=== PATIENT | female | born 1990 | race Caucasian/White ===

== ENCOUNTER 2017-11-08 15:49 | Emergency (ER) | payer SELFPAY ==
[~2017-11-08] VITALS: Ht 172.7 cm; Wt 95.3 kg
[2017-11-08] MEDS ORDERED: ACETAMINOPHEN 325 MG TAB PO STA (16:46)
[2017-11-08] MEDS ORDERED: SODIUM CHLORIDE 0.9% 250ML 250 ML IV ONE (17:00)
[2017-11-08 17:27] LABS: BASOPHILS % 0.3 % (0.0-1.0); EOSINOPHILS # (AUTO) 0.1 (0.0-0.4); EOSINOPHILS % 1.1 % (0.0-6.0); LYMPHOCYTES # (AUTO) 1.1 (1.0-3.2); LYMPHOCYTES % 10.3 % (18.0-39.1); MEAN CORPUSCULAR HEMOGLOBIN 27.1 pg (28-32); MEAN CORPUSCULAR HGB CONC 30.9 g/dL (31-35); MEAN CORPUSCULAR VOLUME 87.6 fL (81-99); MONOCYTES # (AUTO) 0.5 (0.2-0.8); MONOCYTES % 4.9 % (4.4-11.3); NEUTROPHILS # (AUTO) 8.9 (2.1-6.9); NEUTROPHILS % 82.7 % (38.7-80.0); PLATELET COUNT 256 x10e3/uL (140-360); RED BLOOD COUNT 2.18 x10e6/uL (3.6-5.1); RED CELL DISTRIBUTION WIDTH 15.2 % (11.7-14.4)
[2017-11-08 17:28] LABS: HEMOGLOBIN 5.9 g/dL (12.0-16.0)
[2017-11-08 17:29] LABS: HEMATOCRIT 19.1 % (34.2-44.1)
[2017-11-08 17:42] LABS: ALANINE AMINOTRANSFERASE 13 IU/L (0-55); ALBUMIN 3.4 g/dL (3.5-5.0); ALKALINE PHOSPHATASE 39 IU/L (40-150); ANION GAP 11.7 mmol/L (8-16); BLOOD UREA NITROGEN 8 mg/dL (7-26); BUN/CREATININE RATIO 12 (6-25); CALCIUM 8.8 mg/dL (8.4-10.2); CARBON DIOXIDE 23 mmol/L (22-29); CHLORIDE 105 mmol/L (98-107); CREATININE, SERUM 0.67 mg/dL (0.57-1.11); EST GLOMERULAR FILTRATION RATE > 60 ML/MIN (60-); GLUCOSE 94 mg/dL (74-118); POTASSIUM 3.7 mmol/L (3.5-5.1); SODIUM 136 mmol/L (136-145)
[2017-11-08 17:48] LABS: HCG,QUANTITATIVE < 1.20 mIU/mL (0-10)
[2017-11-08] MEDS ORDERED: ONDANSETRON HCL 4 MG ORAL DISINTEGRATING TAB ONE (20:58)
[2017-11-08] MEDS ORDERED: ONDANSETRON HCL 4 MG ORAL DISINTEGRATING TAB PO ONE (21:00)
[2017-11-08 21:14] LABS: CLARITY,URINE SL CLOUDY (CLEAR); COLOR,URINE OTHER (YELLOW)
[2017-11-08 21:15] LABS: LEUKOCYTE ESTERASE ,URINE NEGATIVE (NEGATIVE); NITRITE,URINE NEGATIVE (NEGATIVE); PROTEIN,URINE DIPSTICK 2+ (NEGATIVE)
[2017-11-08 21:16] LABS: BILIRUBIN,URINE NEGATIVE (NEGATIVE); KETONES,URINE NEGATIVE (NEGATIVE); URINE UROBILINOGEN 0.2 mg/dL (0.2 - 1)
[2017-11-08 21:46] LABS: BACTERIA,URINE FEW /HPF; EPITHELIAL CELLS,URINE FEW /LPF; RBC,URINE >50 /HPF (0-5); WBC,URINE (MAN) 0-5 /HPF (0-5)
== END 2017-11-08 23:15 | disposition home or self-care (01) ==
LOC: ER 15:49
DX: N93.9 Abnormal uterine and vaginal bleeding, unspecified (principal); D50.0 Iron deficiency anemia secondary to blood loss (chronic)
CPT/HCPCS: 36415; 80053; 81001; 84702; 85025; 86850; 86900; 86920; 99283; J7050; P9016; 36430

== ENCOUNTER 2017-11-10 18:32 | Emergency (ER) | payer SELFPAY ==
[~2017-11-10] VITALS: Ht 162.6 cm; Wt 95.3 kg
--- OUTSIDE RECORDS SUMMARY | 2017-11-10 18:34 | XMS REPORT ---
Author Author Admin, [place] Organization [facility] Address Unknown Phone Unavailable Allergies, Adverse Reactions, Alerts Allergy Name Reaction Description Start Date Severity Status Provider Allergies Unknown Conditions or Problems Problem Name Problem Code Onset Date Status Entry Date Provider Comment Standard Description Annotate Problems Unknown Medication List Medication Instructions Start Date Stop Date Generic Name NDC Status Provider Patient Instruction Drug Treatment Unknown - unknown
--- OUTSIDE RECORDS SUMMARY | 2017-11-10 18:34 | XMS REPORT ---
Author Author [facility] Address Unknown Phone Unavailable Care Team Providers Care Credentialer Name Role Phone Unavailable Unavailable Problems This patient has no known problems. Allergies, Adverse Reactions, Alerts This patient has no known allergies or adverse reactions. Medications This patient has no known medications. Encounters Start Date/Time End Date/Time Encounter Type Admission Type Attending Clinicians [facility] Emergency Department Facility Care Department Encounter ID 2018-01-22 00:00:00 2018-01-22 00:00:00 Outpatient [facility] [id number] 2017-11-03 20:36:14 2017-11-03 20:36:14 Emergency [facility] [id number] 2017-11-03 14:28:19 2017-11-03 14:28:19 Outpatient [facility] [id number] 2017-11-03 14:28:17 2017-11-03 14:28:17 Outpatient [facility] [id number]
--- OUTSIDE RECORDS SUMMARY | 2017-11-10 18:34 | XMS REPORT | Continuity of Care Document ---
Author Author [facility] Organization [facility] Address [address] [place] [address] Phone Unavailable Care Team Providers Care Radiology Practitioner Assistant Name Role Phone NO, PCP PCP Unavailable Advance Directives Directive Response Recorded Date/Time Does the patient have an advance directive? No 11/08/17 4:40pm If yes, is advance directive on file with [facility]? No 11/08/17 4:40pm If not on file with [facility] will patient provide a copy? No 11/08/17 4:40pm Do you have a Directive to Physician? No 11/08/17 4:40pm Do you have a Medical Power of Forms Designer? No 11/08/17 4:40pm Do you have an out of hospital Do Not Resuscitate Order? No 11/08/17 4:40pm Do you have any special needs we should be aware of? No 11/08/17 4:40pm Do you have a support person here with you today? Yes 11/08/17 4:40pm Did patient receive Notice of Privacy Practices? Yes 11/08/17 4:40pm Did patient receive patient rights and responsibilities? Yes 11/08/17 4:40pm Problems No problem information available. Medications No medication information available. Social History Smoking Status Start Date Stop Date Former smoker Hospital Discharge Instructions No hospital discharge instruction information available. Plan of Care Discharge Date 11/08/17 11:15pm Disposition HOME, SELF-CARE Condition at Discharge Stable Instructions/Education Provided Dysmenorrhea Abnormal Uterine Bleeding Forms Provided Work/School Excuse Prescriptions See Medication Section Referrals OB Community Providers Address: You were given a list of OB Community Providers to call and arrange follow up. Additional Instructions/Education Call for follow up appointment to see your medical provider or the referral listed to help you manage your vaginal bleeding. Take over the counter Motrin or Tylenol medication as needed for comfort. Take medication as prescribed. Strict pelvic rest (no sex). Return to the emergency department for any fever, shortness of breath, chest pain, abdominal pain, trouble handling oral secretions, for bleeding of 2 full pads per hour for 2 hours, sharp pelvic pain, dizziness, or any concerns. Call [phone] call center, a free service that provides physician referrals and access to physicians and services. Functional Status No functional status information available. Allergies, Adverse Reactions, Alerts Allergen Type Severity Reaction Status Last Updated Naproxen Allergy Unknown Active 11/08/17 Immunizations No immunization information available. Vital Signs Acute Vital Signs Vital Response Date/Time Height 5 ft 8 in 11/08/2017 3:51pm Weight 210 lb 11/08/2017 3:51pm Body Mass Index 31.9 kg/m^2 11/08/2017 3:51pm Results Laboratory Results Test Name Result Units Flags Reference Collection Date/Time Result Date/ Time Comments White Blood Count 10.73 x10e3/uL 4.8-10.8 11/08/2017 5:04pm 11/08/2017 5:29pm Red Blood Count 2.18 x10e6/uL L 3.6-5.1 11/08/2017 5:04pm 11/08/2017 5: 29pm Hemoglobin 5.9 g/dL *L 12.0-16.0 11/08/2017 5:04pm 11/08/2017 5:29pm Results called to GERI ANTONIO at 1728 on 11/08/17 by KIRSTY MAURICIO. RB OK. Hematocrit 19.1 % *L 34.2-44.1 11/08/2017 5:04pm 11/08/2017 5:29pm Results called to GERI ANTONIO at 1729 on 11/08/17 by KIRSTY MAURICIO. RB OK. Mean Corpuscular Volume 87.6 fL 81-99 11/08/2017 5:04pm 11/08/2017 5: 29pm Mean Corpuscular Hemoglobin 27.1 pg L 28-32 11/08/2017 5:04pm 2017 5:29pm Mean Corpuscular Hemoglobin Concent 30.9 g/dL L 31-35 11/08/2017 5:04pm 11/08/2017 5:29pm Red Cell Distribution Width 15.2 % H 11.7-14.4 11/08/2017 5:04pm 2017 5:29pm Platelet Count 256 x10e3/uL 140-360 11/08/2017 5:04pm 11/08/2017 5: 29pm Neutrophils (%) (Auto) 82.7 % H 38.7-80.0 11/08/2017 5:04pm 11/08/2017 5 :29pm Lymphocytes (%) (Auto) 10.3 % L 18.0-39.1 11/08/2017 5:04pm 11/08/2017 5 :29pm Monocytes (%) (Auto) 4.9 % 4.4-11.3 11/08/2017 5:04pm 11/08/2017 5: 29pm Eosinophils (%) (Auto) 1.1 % 0.0-6.0 11/08/2017 5:04pm 11/08/2017 5: 29pm Basophils (%) (Auto) 0.3 % 0.0-1.0 11/08/2017 5:04pm 11/08/2017 5:29pm IM GRANULOCYTES % 0.7 % 0.0-1.0 11/08/2017 5:04pm 11/08/2017 5:29pm Neutrophils # (Auto) 8.9 H 2.1-6.9 11/08/2017 5:04pm 11/08/2017 5: 29pm Lymphocytes # (Auto) 1.1 1.0-3.2 11/08/2017 5:04pm 11/08/2017 5:29pm Monocytes # (Auto) 0.5 0.2-0.8 11/08/2017 5:04pm 11/08/2017 5:29pm Eosinophils # (Auto) 0.1 0.0-0.4 11/08/2017 5:04pm 11/08/2017 5:29pm Basophils # (Auto) 0.0 0.0-0.1 11/08/2017 5:04pm 11/08/2017 5:29pm Absolute Immature Granulocyte (auto 0.08 x10e3/uL 0-0.1 11/08/2017 5: 04pm 11/08/2017 5:29pm Urine Color OTHER YELLOW 11/08/2017 6:02pm 11/08/2017 9:16pm Urine Clarity SL CLOUDY CLEAR 11/08/2017 6:02pm 11/08/2017 9:16pm Urine Specific [place] 1.025 1.010-1.025 11/08/2017 6:02pm 2017 9:16pm Urine pH 8 H 5 - 7 11/08/2017 6:02pm 11/08/2017 9:16pm Urine Leukocyte Esterase NEGATIVE NEGATIVE 11/08/2017 6:02pm 2017 9:16pm Urine Nitrite NEGATIVE NEGATIVE 11/08/2017 6:02pm 11/08/2017 9:16pm Urine Protein 2+ H NEGATIVE 11/08/2017 6:02pm 11/08/2017 9:16pm Urine Glucose (UA) NEGATIVE NEGATIVE 11/08/2017 6:02pm 11/08/2017 9: 16pm Urine Ketones NEGATIVE NEGATIVE 11/08/2017 6:02pm 11/08/2017 9:16pm Urine Urobilinogen 0.2 mg/dL 0.2 - 1 11/08/2017 6:02pm 11/08/2017 9: 16pm Urine Bilirubin NEGATIVE NEGATIVE 11/08/2017 6:02pm 11/08/2017 9: 16pm Urine Blood 2+ H NEGATIVE 11/08/2017 6:02pm 11/08/2017 9:16pm Urine WBC 0-5 /HPF 0-5 11/08/2017 6:02pm 11/08/2017 9:46pm Urine RBC >50 /HPF H 0-5 11/08/2017 6:02pm 11/08/2017 9:46pm Urine Bacteria FEW /HPF NONE 11/08/2017 6:02pm 11/08/2017 9:46pm Urine Epithelial Cells FEW /LPF NONE 11/08/2017 6:02pm 11/08/2017 9: 46pm Sodium Level 136 mmol/L 136-145 11/08/2017 5:04pm 11/08/2017 5:42pm Potassium Level 3.7 mmol/L 3.5-5.1 11/08/2017 5:04pm 11/08/2017 5:42pm Chloride Level 105 mmol/L 98-107 11/08/2017 5:04pm 11/08/2017 5:42pm Carbon Dioxide Level 23 mmol/L 22-11/08/2017 5:04pm 11/08/2017 5: 42pm Anion Gap 11.7 mmol/L 8-16 11/08/2017 5:04pm 11/08/2017 5:42pm Blood Urea Nitrogen 8 mg/dL 7-11/08/2017 5:04pm 11/08/2017 5:42pm Creatinine 0.67 mg/dL 0.57-1.11 11/08/2017 5:04pm 11/08/2017 5:42pm BUN/Creatinine Ratio 12 6-25 11/08/2017 5:04pm 11/08/2017 5:42pm Estimat Glomerular Filtration Rate > 60 ML/MIN 60- 11/08/2017 5:04pm 5:42pm Ranges were taken from the National Kidney Disease Education Program and the National Kidney Foundation literature. Reference ranges: 60 or greater: Normal 16-59 (for 3 consecutive months): Chronic kidney disease 15 or less: Kidney failure Glucose Level 94 mg/dL 74-118 11/08/2017 5:04pm 11/08/2017 5:42pm Calcium Level 8.8 mg/dL 8.4-10.2 11/08/2017 5:04pm 11/08/2017 5:42pm Total Bilirubin 0.4 mg/dL 0.2-1.2 11/08/2017 5:04pm 11/08/2017 5:42pm Aspartate Amino Transf (AST/SGOT) 15 IU/L 5-34 11/08/2017 5:04pm 2017 5:42pm Alanine Aminotransferase (ALT/SGPT) 13 IU/L 0-55 11/08/2017 5:04pm 5:42pm Total Protein 6.7 g/dL 6.5-8.1 11/08/2017 5:04pm 11/08/2017 5:42pm Albumin 3.4 g/dL L 3.5-5.0 11/08/2017 5:04pm 11/08/2017 5:42pm Globulin 3.3 g/dL 2.3-3.5 11/08/2017 5:04pm 11/08/2017 5:42pm Albumin/Globulin Ratio 1.0 0.8-2.0 11/08/2017 5:04pm 11/08/2017 5: 42pm Alkaline Phosphatase 39 IU/L L 40-150 11/08/2017 5:04pm 11/08/2017 5: 42pm Human Chorionic Gonadotropin, Quant < 1.20 mIU/mL 0-10 11/08/2017 5: 04pm 11/08/2017 5:49pm Procedures No procedure information available. Encounters Encounter Location Arrival/Admit Date Discharge/Depart Date Attending Provider Registered Emergency Room [facility] 11/08/17 3:49pm SIMRAN WHITMAN MD
[2017-11-10 19:38] LABS: BASOPHILS # (AUTO) 0.1 (0.0-0.1); BASOPHILS % 0.6 % (0.0-1.0); EOSINOPHILS # (AUTO) 0.2 (0.0-0.4); EOSINOPHILS % 2.4 % (0.0-6.0); HEMATOCRIT 25.8 % (34.2-44.1); LYMPHOCYTES # (AUTO) 1.7 (1.0-3.2); LYMPHOCYTES % 16.6 % (18.0-39.1); MEAN CORPUSCULAR VOLUME 87.2 fL (81-99); MONOCYTES # (AUTO) 0.7 (0.2-0.8); MONOCYTES % 7.2 % (4.4-11.3); NEUTROPHILS # (AUTO) 7.3 (2.1-6.9); NEUTROPHILS % 72.4 % (38.7-80.0); PLATELET COUNT 267 x10e3/uL (140-360); RED BLOOD COUNT 2.96 x10e6/uL (3.6-5.1); RED CELL DISTRIBUTION WIDTH 15.3 % (11.7-14.4)
--- NOTE | 2017-11-10 19:51 | Diagnostic Imaging Report ---
Examination: Single AP view of the chest. COMPARISON: None. INDICATION: Chest pain DISCUSSION: Lines/tubes: None. Lungs: The lungs are well inflated and clear. No pneumonia or pulmonary edema. Pleura: There is no pleural effusion or pneumothorax. Heart and mediastinum: The heart and the mediastinum are unremarkable. Bones and soft tissues: No acute bony abnormalities. IMPRESSION: 1. No acute cardiopulmonary abnormalities. Signed by: Dr. Joe Vu M.D. on 11/10/2017 7:47 PM
[2017-11-10 21:21] LABS: CLARITY,URINE SL CLOUDY (CLEAR); COLOR,URINE YELLOW (YELLOW); LEUKOCYTE ESTERASE ,URINE NEGATIVE (NEGATIVE); NITRITE,URINE NEGATIVE (NEGATIVE)
[2017-11-10 21:22] LABS: BILIRUBIN,URINE NEGATIVE (NEGATIVE); KETONES,URINE NEGATIVE (NEGATIVE); PROTEIN,URINE DIPSTICK TRACE (NEGATIVE); URINE UROBILINOGEN 0.2 mg/dL (0.2 - 1)
[2017-11-10 21:31] LABS: BACTERIA,URINE RARE /HPF; RBC,URINE >50 /HPF (0-5)
[2017-11-10 21:33] LABS: ALANINE AMINOTRANSFERASE 13 IU/L (0-55); ALBUMIN 3.2 g/dL (3.5-5.0); ALBUMIN/GLOBULIN RATIO 0.9 (0.8-2.0); ALKALINE PHOSPHATASE 44 IU/L (40-150); ANION GAP 12.7 mmol/L (8-16); BLOOD UREA NITROGEN 10 mg/dL (7-26); BUN/CREATININE RATIO 11 (6-25); CALCIUM 9.2 mg/dL (8.4-10.2); CARBON DIOXIDE 25 mmol/L (22-29); CHLORIDE 105 mmol/L (98-107); CREATINE KINASE 62 IU/L (29-168); CREATININE, SERUM 0.88 mg/dL (0.57-1.11); EST GLOMERULAR FILTRATION RATE > 60 ML/MIN (60-); GLUCOSE 111 mg/dL (74-118); POTASSIUM 3.7 mmol/L (3.5-5.1); SODIUM 139 mmol/L (136-145)
[2017-11-10] MEDS ORDERED: SODIUM CHLORIDE 0.9% 1000ML 1,000 ML IV STA (22:01)
--- NOTE | 2017-11-10 22:21 | Diagnostic Imaging Report ---
EXAM: CT Chest WITH contrast 11/10/2017 8:03 PM INDICATION: Pulmonary embolism, shortness of breath COMPARISON: Chest x-ray on 11/10/2017 TECHNIQUE: Chest was scanned utilizing a multidetector helical scanner from the lung apex through the level of the adrenal glands without administration of IV contrast. Coronal and sagittal reformations were obtained. Pulmonary embolism protocol was performed. IV CONTRAST: 63 mL of Isovue-370 RADIATION DOSE: Total DLP: 612.71 mGy*cm Estimated effective dose: (DLP x 0.014 x size factor) mSv COMPLICATIONS: None FINDINGS: LINES/ TUBES: None. LUNGS AND AIRWAYS: The lungs are unremarkable. Airways are normal. PLEURA: The pleural spaces are clear. HEART AND MEDIASTINUM: The thyroid gland is normal. No mediastinal, hilar or axillary lymphadenopathy. The heart is normal in size.. There is no pericardial effusion. Aorta and coronary arteries are unremarkable. The pulmonary artery measures 2.6 cm in transverse dimension, within normal limits. UPPER ABDOMEN: Limited non-contrast views of the upper abdomen show no abnormality within the visualized liver, spleen, pancreas, or kidneys. The adrenal glands are normal. BONES: There are degenerative changes in the thoracic spine. SOFT TISSUES: Unremarkable. IMPRESSION: No evidence of pulmonary embolism. No evidence of acute intrathoracic abnormality. Signed by: Dr. Fortino Howard M.D. on 11/10/2017 10:17 PM
[2017-11-11] MEDS ORDERED: IOPAMIDOL 370 MG/ML 200 ML INFUS..BTL INJ ONE (09:38)
[2017-11-11] MEDS ORDERED: SODIUM CHLORIDE 0.9% 50ML 50 ML ONE (09:38)
== END 2017-11-10 23:29 | disposition home or self-care (01) ==
LOC: ER 18:32
DX: R07.89 Other chest pain (principal)
CPT/HCPCS: 36415; 71045; 71260; 80053; 81001; 82550; 82553; 84484; 84702; 85025; 85379; 87086; 93005; 99284; J7030

== ENCOUNTER 2017-11-18 16:18 | Emergency (ER) | payer SELFPAY ==
[~2017-11-18] VITALS: Ht 162.6 cm; Wt 95.3 kg
--- OUTSIDE RECORDS SUMMARY | 2017-11-18 16:21 | XMS REPORT | Continuity of Care Document ---
Author Author [facility] Organization [facility] Address [address] [place] [address] Phone Unavailable Care Team Providers Care Career Development Specialist Name Role Phone NO, PCP PCP Unavailable Advance Directives Directive Response Recorded Date/Time Does the patient have an advance directive? No 11/08/17 4:40pm If yes, is advance directive on file with [facility]? No 11/08/17 4:40pm If not on file with [facility] will patient provide a copy? No 11/08/17 4:40pm Do you have a Directive to Physician? No 11/10/17 9:46pm Do you have a Medical Power of Mica Spreader? No 11/10/17 9:46pm Do you have an out of hospital Do Not Resuscitate Order? No 11/10/17 9:46pm Do you have any special needs we should be aware of? No 11/10/17 9:46pm Do you have a support person here with you today? Yes 11/10/17 9:46pm Did patient receive Notice of Privacy Practices? Yes 11/10/17 9:46pm Did patient receive patient rights and responsibilities? Yes 11/10/17 9:46pm Problems No problem information available. Medications No medication information available. Social History Smoking Status Start Date Stop Date Former smoker Hospital Discharge Instructions No hospital discharge instruction information available. Plan of Care Discharge Date 11/10/17 11:29pm Disposition HOME, SELF-CARE Condition at Discharge Stable Instructions/Education Provided Anemia Chest Pain - Chest Wall Forms Provided Work/School Excuse Prescriptions See Medication Section Additional Instructions/Education FOLLOW UP WITH YOUR DOCTOR TOMORROW FOLLOW UP WITH YOUR OBGYN TOMORROW Functional Status No functional status information available. Allergies, Adverse Reactions, Alerts Allergen Type Severity Reaction Status Last Updated Naproxen Allergy Unknown Active 11/08/17 Immunizations No immunization information available. Vital Signs Acute Vital Signs Vital Response Date/Time Height 5 ft 4 in 11/10/2017 6:37pm Weight 210 lb 11/10/2017 6:37pm Body Mass Index 36.0 kg/m^2 11/10/2017 6:37pm Results Laboratory Results Test Name Result Units Flags Reference Collection Date/Time Result Date/ Time Comments Human Chorionic Gonadotropin, Quant < 1.20 mIU/mL 0-10 11/08/2017 5: 04pm 11/08/2017 5:49pm White Blood Count 10.13 x10e3/uL 4.8-10.8 11/10/2017 7:02pm 11/10/2017 7:39pm Red Blood Count 2.96 x10e6/uL L 3.6-5.1 11/10/2017 7:02pm 11/10/2017 7: 39pm Hemoglobin 8.0 g/dL L 12.0-16.0 11/10/2017 7:02pm 11/10/2017 7:39pm Hematocrit 25.8 % L 34.2-44.1 11/10/2017 7:02pm 11/10/2017 7:39pm Mean Corpuscular Volume 87.2 fL 81-99 11/10/2017 7:02pm 11/10/2017 7: 39pm Mean Corpuscular Hemoglobin 27.0 pg L 28-32 11/10/2017 7:02pm 2017 7:39pm Mean Corpuscular Hemoglobin Concent 31.0 g/dL 31-35 11/10/2017 7:02pm 11/10/2017 7:39pm Red Cell Distribution Width 15.3 % H 11.7-14.4 11/10/2017 7:02pm 2017 7:39pm Platelet Count 267 x10e3/uL 140-360 11/10/2017 7:02pm 11/10/2017 7: 39pm Neutrophils (%) (Auto) 72.4 % 38.7-80.0 11/10/2017 7:02pm 11/10/2017 7: 39pm Lymphocytes (%) (Auto) 16.6 % L 18.0-39.1 11/10/2017 7:02pm 11/10/2017 7 :39pm Monocytes (%) (Auto) 7.2 % 4.4-11.3 11/10/2017 7:02pm 11/10/2017 7: 39pm Eosinophils (%) (Auto) 2.4 % 0.0-6.0 11/10/2017 7:02pm 11/10/2017 7: 39pm Basophils (%) (Auto) 0.6 % 0.0-1.0 11/10/2017 7:02pm 11/10/2017 7:39pm IM GRANULOCYTES % 0.8 % 0.0-1.0 11/10/2017 7:02pm 11/10/2017 7:39pm Neutrophils # (Auto) 7.3 H 2.1-6.9 11/10/2017 7:02pm 11/10/2017 7: 39pm Lymphocytes # (Auto) 1.7 1.0-3.2 11/10/2017 7:02pm 11/10/2017 7:39pm Monocytes # (Auto) 0.7 0.2-0.8 11/10/2017 7:02pm 11/10/2017 7:39pm Eosinophils # (Auto) 0.2 0.0-0.4 11/10/2017 7:02pm 11/10/2017 7:39pm Basophils # (Auto) 0.1 0.0-0.1 11/10/2017 7:02pm 11/10/2017 7:39pm Absolute Immature Granulocyte (auto 0.08 x10e3/uL 0-0.1 11/10/2017 7: 02pm 11/10/2017 7:39pm D-Dimer Quantitative (PE/DVT) 227 ng/mL 0-400 11/10/2017 7:02pm 2017 7:57pm As with all in vitro diagnostic tests, the test results should be interpreted by the physician in conjunction with clinical findings and other test results. Test results are reported in NEW D-dimer units(ug/mLFEU). Urine Color YELLOW YELLOW 11/10/2017 8:55pm 11/10/2017 9:22pm Urine Clarity SL CLOUDY CLEAR 11/10/2017 8:55pm 11/10/2017 9:22pm Urine Specific [place] 1.025 1.010-1.025 11/10/2017 8:55pm 2017 9:22pm Urine pH 7 5 - 7 11/10/2017 8:55pm 11/10/2017 9:22pm Urine Leukocyte Esterase NEGATIVE NEGATIVE 11/10/2017 8:55pm 2017 9:22pm Urine Nitrite NEGATIVE NEGATIVE 11/10/2017 8:55pm 11/10/2017 9:22pm Urine Protein TRACE H NEGATIVE 11/10/2017 8:55pm 11/10/2017 9:22pm Urine Glucose (UA) NEGATIVE NEGATIVE 11/10/2017 8:55pm 11/10/2017 9: 22pm Urine Ketones NEGATIVE NEGATIVE 11/10/2017 8:55pm 11/10/2017 9:22pm Urine Urobilinogen 0.2 mg/dL 0.2 - 1 11/10/2017 8:55pm 11/10/2017 9: 22pm Urine Bilirubin NEGATIVE NEGATIVE 11/10/2017 8:55pm 11/10/2017 9: 22pm Urine Blood 4+ H NEGATIVE 11/10/2017 8:55pm 11/10/2017 9:22pm Urine WBC NONE /HPF 0-5 11/10/2017 8:55pm 11/10/2017 9:31pm Urine RBC >50 /HPF H 0-5 11/10/2017 8:55pm 11/10/2017 9:31pm Urine Bacteria RARE /HPF NONE 11/10/2017 8:55pm 11/10/2017 9:31pm Urine Epithelial Cells NONE /LPF NONE 11/10/2017 8:55pm 11/10/2017 9: 31pm Sodium Level 139 mmol/L 136-145 11/10/2017 8:51pm 11/10/2017 9:36pm Potassium Level 3.7 mmol/L 3.5-5.1 11/10/2017 8:51pm 11/10/2017 9:36pm Chloride Level 105 mmol/L 98-107 11/10/2017 8:51pm 11/10/2017 9:36pm Carbon Dioxide Level 25 mmol/L 11/10/2017 8:51pm 11/10/2017 9: 36pm Anion Gap 12.7 mmol/L 8-11/10/2017 8:51pm 11/10/2017 9:36pm Blood Urea Nitrogen 10 mg/dL 7-11/10/2017 8:11/10/2017 9:36pm Creatinine 0.88 mg/dL 0.57-1.11 11/10/2017 8:11/10/2017 9:36pm BUN/Creatinine Ratio 11 6-25 11/10/2017 8:11/10/2017 9:36pm Estimat Glomerular Filtration Rate > 60 ML/MIN 60- 11/10/2017 8: 9:36pm Ranges were taken from the National Kidney Disease Education Program and the National Kidney Foundation literature. Reference ranges: 60 or greater: Normal 16-59 (for 3 consecutive months): Chronic kidney disease 15 or less: Kidney failure Glucose Level 111 mg/dL 74-118 11/10/2017 8:11/10/2017 9:36pm Calcium Level 9.2 mg/dL 8.4-10.2 11/10/2017 8:11/10/2017 9:36pm Total Bilirubin 0.4 mg/dL 0.2-1.2 11/10/2017 8:11/10/2017 9:36pm Aspartate Amino Transf (AST/SGOT) 16 IU/L 5-34 11/10/2017 8:2017 9:36pm Alanine Aminotransferase (ALT/SGPT) 13 IU/L 0-55 11/10/2017 8: 9:36pm Total Protein 6.8 g/dL 6.5-8.1 11/10/2017 8:11/10/2017 9:36pm Albumin 3.2 g/dL L 3.5-5.0 11/10/2017 8:11/10/2017 9:36pm Globulin 3.6 g/dL H 2.3-3.5 11/10/2017 8:11/10/2017 9:36pm Albumin/Globulin Ratio 0.9 0.8-2.0 11/10/2017 8:11/10/2017 9: 36pm Alkaline Phosphatase 44 IU/L 40-150 11/10/2017 8:11/10/2017 9: 36pm Creatine Kinase 62 IU/L 29-168 11/10/2017 8:11/10/2017 9:36pm Creatine Kinase MB 0.70 ng/mL 0-5.0 11/10/2017 8:51pm 11/10/2017 9: 40pm Troponin I < 0.001 ng/mL 0-0.300 11/10/2017 8:51pm 11/10/2017 9:40pm Human Chorionic Gonadotropin, Qual NEGATIVE NEGATIVE 11/10/2017 8: 51pm 11/10/2017 9:24pm Procedures Procedure Status Date Provider(s) Computed tomography of chest with contrast Active 11/10/17 [employer]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 11/10/17 6:32pm 11:29pm FAB LOYOLA MD Departed Emergency Room [facility] 11/08/17 3:49pm 11:15pm SIMRAN WHITMAN MD
--- OUTSIDE RECORDS SUMMARY | 2017-11-18 16:21 | XMS REPORT ---
Author Author Admin, [place] Organization [facility] Address Unknown Phone Unavailable Allergies, Adverse Reactions, Alerts Allergy Name Reaction Description Start Date Severity Status Provider NAPROSYN Critical Active Nato Syed MD Conditions or Problems Problem Name Problem Code Onset Date Status Entry Date Provider Comment Standard Description Annotate Abnormal uterine bleeding 626.9 Active Nato Syed MD Unspecified disorders of menstruation and other abnormal bleeding from female genital tract Medication List Medication Instructions Start Date Stop Date Generic Name NDC Status Provider Patient Instruction No Drug Therapy Prescribed - none known did ask Nato Syed MD Vital Signs Date Name Value Unit Range Description blood pressure, diastolic 84 mm[Hg] BP magaña blood pressure, systolic 131 mm[Hg] BP sys height E&M 64 [in_us] Bdy height pulse rate E&M 98 /min Heart rate respiratory rate E&M 18 /min Resp rate temperature E&M 98.2 [degF] Body temperature weight E&M 214.38 [lb_av] Weight Measured Encounters Date Encounter Provider Code Facility 17:13:35 CDT New Patient Detailed - [id number] Nato Syed MD CPT- 49807 [facility]
[2017-11-18] MEDS ORDERED: SODIUM CHLORIDE 0.9% 1000ML 1,000 ML IV ONE (17:00)
[2017-11-18 17:19] LABS: BASOPHILS % 0.3 % (0.0-1.0); EOSINOPHILS # (AUTO) 0.1 (0.0-0.4); EOSINOPHILS % 1.5 % (0.0-6.0); HEMATOCRIT 23.3 % (34.2-44.1); LYMPHOCYTES % 13.2 % (18.0-39.1); MEAN CORPUSCULAR HEMOGLOBIN 26.3 pg (28-32); MEAN CORPUSCULAR VOLUME 87.6 fL (81-99); MONOCYTES # (AUTO) 0.4 (0.2-0.8); MONOCYTES % 5.6 % (4.4-11.3); NEUTROPHILS # (AUTO) 5.9 (2.1-6.9); NEUTROPHILS % 79.1 % (38.7-80.0); PLATELET COUNT 263 x10e3/uL (140-360); RED BLOOD COUNT 2.66 x10e6/uL (3.6-5.1); RED CELL DISTRIBUTION WIDTH 15.4 % (11.7-14.4)
[2017-11-18 17:31] LABS: INR 0.93; PROTHROMBIN TIME 11.7 seconds (11.9-14.5)
[2017-11-18 17:38] LABS: ALANINE AMINOTRANSFERASE 13 IU/L (0-55); ALBUMIN 3.2 g/dL (3.5-5.0); ALBUMIN/GLOBULIN RATIO 0.8 (0.8-2.0); ALKALINE PHOSPHATASE 45 IU/L (40-150); ANION GAP 11.4 mmol/L (8-16); BLOOD UREA NITROGEN 12 mg/dL (7-26); BUN/CREATININE RATIO 16 (6-25); CALCIUM 9.1 mg/dL (8.4-10.2); CARBON DIOXIDE 23 mmol/L (22-29); CHLORIDE 105 mmol/L (98-107); CREATININE, SERUM 0.76 mg/dL (0.57-1.11); EST GLOMERULAR FILTRATION RATE > 60 ML/MIN (60-); GLUCOSE 158 mg/dL (74-118); POTASSIUM 3.4 mmol/L (3.5-5.1); SODIUM 136 mmol/L (136-145)
[2017-11-18] MEDS ORDERED: SODIUM CHLORIDE 0.9% 250ML 250 ML IV ONE (18:00)
[2017-11-18] MEDS ORDERED: ACETAMINOPHEN 325 MG TAB ONE (20:48)
[2017-11-18] MEDS ORDERED: ACETAMINOPHEN 325 MG TAB PO ONE (21:00)
[2017-11-18 23:21] VITALS: BP 119/78
== END 2017-11-18 23:47 | disposition home or self-care (01) ==
LOC: ER 16:18
DX: D50.0 Iron deficiency anemia secondary to blood loss (chronic) (principal); R53.1 Weakness; R42 Dizziness and giddiness
CPT/HCPCS: 36430; P9016; 36415; 80053; 85025; 85610; 86850; 86900; 86920; 99283; J7030; J7050